=== PATIENT | male | born 1980 | race Asian ===

== ENCOUNTER 2017-03-31 19:54 | Emergency (ER) | payer OTHER ==
[~2017-03-31] VITALS: Ht 182.9 cm; Wt 86.2 kg
[2017-03-31 21:52] LABS: PLATELET COUNT 187 K/uL (142-355)
[2017-03-31 21:59] LABS: POTASSIUM 4.2 mmol/L (3.6-5.2); SODIUM 136 mmol/L (136-145)
== END 2017-03-31 22:45 | disposition home or self-care (01) ==
LOC: ED 19:54
DX: F12.10 Cannabis abuse, uncomplicated (principal); F41.9 Anxiety disorder, unspecified
CPT/HCPCS: 80053; 80307; 81000; 85027; 99283; G0479

== ENCOUNTER 2017-08-06 09:51 | Emergency (ER) | payer OTHER ==
[~2017-08-06] VITALS: Ht 182.9 cm; Wt 81.6 kg
== END 2017-08-06 10:43 | disposition home or self-care (01) ==
LOC: ED 09:51
DX: K59.00 Constipation, unspecified (principal); R11.0 Nausea; R10.819 Abdominal tenderness, unspecified site
CPT/HCPCS: 99281

== ENCOUNTER 2020-06-05 11:42 | Emergency (ER) | payer OTHER ==
[~2020-06-05] VITALS: Ht 182.9 cm; Wt 93.0 kg
[2020-06-05 11:50] VITALS: TEMP 99.1
[2020-06-05 12:25] VITALS: BP 123/80
== END 2020-06-05 12:37 | disposition home or self-care (01) ==
LOC: ED 11:42
PROC: 2W2KX4Z Dressing of Left Finger using Bandage (ICD-10-PCS; principal; 2020-06-05)
DX: T23.022A Burn of unspecified degree of single left finger (nail) except thumb, initial encounter (principal); T31.0 Burns involving less than 10% of body surface
CPT/HCPCS: 99282; 99283

== ENCOUNTER 2020-10-19 15:13 | Emergency (ER) | payer OTHER ==
[~2020-10-19] VITALS: Ht 182.9 cm; Wt 97.5 kg
[2020-10-19 16:43] VITALS: BP 129/83; TEMP 97.5
== END 2020-10-19 16:51 | disposition home or self-care (01) ==
LOC: ED 15:13
DX: K59.09 Other constipation (principal); K56.7 Ileus, unspecified
CPT/HCPCS: 99283

== ENCOUNTER 2021-02-27 20:15 | Emergency (ER) | payer OTHER ==
[~2021-02-27] VITALS: Ht 182.9 cm; Wt 94.8 kg
[2021-02-27 20:23] VITALS: BP 134/79; TEMP 97.3
[2021-02-27 20:57] LABS: PLATELET COUNT 135 K/uL (142-355)
[2021-02-27 21:02] LABS: POTASSIUM 3.4 mmol/L (3.6-5.2)
== END 2021-02-27 22:26 | disposition home or self-care (01) ==
LOC: ED 20:15
PROVIDERS: Emergency Medicine Emergency Medical Services
DX: A08.39 Other viral enteritis (principal)
CPT/HCPCS: 36415; 80053; 81000; 85027; 96360; 96374; 96375; 99284; J1885; J2405; Q9963

== ENCOUNTER 2021-03-07 06:38 | Emergency (ER) | payer OTHER ==
[~2021-03-07] VITALS: Ht 182.9 cm; Wt 94.8 kg
[2021-03-07 06:45] VITALS: BP 115/71; TEMP 98.6
== END 2021-03-07 07:47 | disposition home or self-care (01) ==
LOC: ED 06:38
DX: K08.89 Other specified disorders of teeth and supporting structures (principal); S02.5XXA Fracture of tooth (traumatic), initial encounter for closed fracture
CPT/HCPCS: 96372; 99282; J1885

== ENCOUNTER 2021-03-11 11:00 | Emergency (ER) | payer OTHER ==
[~2021-03-11] VITALS: Ht 182.9 cm; Wt 94.8 kg
[2021-03-11 11:02] VITALS: TEMP 99.5
[2021-03-11 11:38] LABS: PLATELET COUNT 234 K/uL (142-355)
[2021-03-11 11:42] LABS: POTASSIUM 3.2 mmol/L (3.6-5.2)
[2021-03-11 12:29] VITALS: BP 110/74
== END 2021-03-11 12:29 | disposition home or self-care (01) ==
LOC: ED 11:00
PROVIDERS: Family Medicine
DX: K52.89 Other specified noninfective gastroenteritis and colitis (principal); E87.6 Hypokalemia; K29.60 Other gastritis without bleeding; K08.89 Other specified disorders of teeth and supporting structures
CPT/HCPCS: 80053; 82150; 83690; 85027; 96360; 96361; 96374; 96375; 99284; J2175; J2550; J3490

== ENCOUNTER 2021-04-17 18:53 | Emergency (ER) | payer OTHER ==
[~2021-04-17] VITALS: Ht 182.9 cm; Wt 88.5 kg
[2021-04-17 19:17] VITALS: BP 126/67; TEMP 99.2
== END 2021-04-17 20:14 | disposition home or self-care (01) ==
LOC: ED 18:53
DX: M79.642 Pain in left hand (principal); M79.641 Pain in right hand; M06.842 Other specified rheumatoid arthritis, left hand; M06.841 Other specified rheumatoid arthritis, right hand
CPT/HCPCS: 96372; 99283; J1885; J2930

== ENCOUNTER 2023-04-03 16:21 | Emergency (ER) | payer OTHER ==
[~2023-04-03] VITALS: Ht 182.9 cm; Wt 86.2 kg
[2023-04-03 16:40] VITALS: TEMP 97.6
[2023-04-03 18:18] VITALS: BP 109/59
== END 2023-04-03 18:20 | disposition home or self-care (01) ==
LOC: ED 16:21
DX: S50.862A Insect bite (nonvenomous) of left forearm, initial encounter (principal); W57.XXXA Bitten or stung by nonvenomous insect and other nonvenomous arthropods, initial encounter; F17.210 Nicotine dependence, cigarettes, uncomplicated; F10.90 Alcohol use, unspecified, uncomplicated; F12.90 Cannabis use, unspecified, uncomplicated
CPT/HCPCS: 96372; 99282; J1200; J2930

== ENCOUNTER 2023-06-13 14:26 | Emergency (ER) | payer OTHER ==
[~2023-06-13] VITALS: Ht 182.9 cm; Wt 81.6 kg
[2023-06-13 14:30] VITALS: TEMP 97.2
[2023-06-13 14:48] LABS: PLATELET COUNT 146 K/uL (142-355)
[2023-06-13 17:30] VITALS: BP 121/79
== END 2023-06-13 17:30 | disposition home or self-care (01) ==
LOC: ED 14:26
PROVIDERS: Family Medicine
DX: R10.9 Unspecified abdominal pain (principal); K59.00 Constipation, unspecified; F17.210 Nicotine dependence, cigarettes, uncomplicated; F12.90 Cannabis use, unspecified, uncomplicated
CPT/HCPCS: 80053; 81002; 83690; 84484; 85027; 93005; 99283; Q9963